=== PATIENT | female | born 1955 | race Caucasian/White ===

== ENCOUNTER 2021-04-11 22:01 | Emergency (ER) | payer MEDICAID ==
[~2021-04-11] VITALS: Ht 167.6 cm; Wt 57.0 kg
[2021-04-11] MEDS ORDERED: IPRATROPIUM BROMIDE (0.02%) 0.5MG/2.5ML NEB HHN STA (22:31)
[2021-04-11] MEDS ORDERED: ONDANSETRON HCL 4MG/2ML INJ IV STA (22:31)
[2021-04-11] MEDS ORDERED: MORPHINE SULFATE 4 MG/ML CPJ (NOT FOR IM USE) IV STA (22:31)
[2021-04-11] MEDS ORDERED: ALBUTEROL (0.083%) 2.5MG/3ML NEB HHN STA (22:31)
[2021-04-11] MEDS ORDERED: FUROSEMIDE 20MG/2ML VIAL IVP ONE (22:45)
[2021-04-11 23:39] LABS: BASOPHILS % 0.6 % (0.0-2.0); CHLORIDE 112 mEq/L (98-107); EOSINOPHILS % 2.2 % (0.0-5.0); HEMATOCRIT. 22.4 % (36.0-48.0); LYMPHOCYTES % 8.9 % (20.0-50.0); MEAN CORPUSCULAR HEMOGLOBIN 20.6 pg (28.0-32.0); MONOCYTES % 9.2 % (2.0-8.0); NEUTROPHILS % 79.1 % (40.0-76.0); RED BLOOD CELL COUNT 3.24 mill/uL (4.2-5.4); RED CELL DISTRIBUTION WIDTH 24.1 % (11.6-14.6)
[2021-04-11 23:44] LABS: ETHANOL BLOOD < 10 mg/dL
[2021-04-11 23:46] LABS: BG BASE EXCESS -3.2 mmol/L (-2.0-2.0); BG CARBOXYHEMOGLOBIN 1.6 % (0.5-1.5); BG DEOXYHEMOGLOBIN 3.5 % (0.0-5.0); BG FRACTION INSPIRED OXYGEN 32; BG HCO3 ACT 23.5 mmol/L (22.0-26.0); BG METHEMOGLOBIN 0.5 % (0.0-1.5); BG OXYGEN SATURATION 96.4 % (92.0-98.5); BG OXYHEMOGLOBIN 94.4 % (94.0-97.0); BG PCO2 52.2 mmHg (35.0-45.0); BG PH 7.272 (7.350-7.450); BG PO2 98.2 mmHg (75.0-100.0); BG SAMPLE SITE LEFT RADIAL; BG VENT MODE NASAL CANNULA
[2021-04-11 23:54] LABS: HEMOGLOBIN. 6.7 g/dL (12.0-16.0)
[2021-04-12 00:30] VITALS: BP 138/74
[2021-04-12 01:36] LABS: INR 1.2
[2021-04-12 02:24] LABS: MEAN PLATELET VOLUME 8.9 fl (7.4-10.4); PLATELET 95 x1000/uL (130-400)
[2021-04-12 02:25] LABS: PLATELET ESTIMATE SLIGHTLY DECREASED
== END 2021-04-12 00:50 | disposition left against medical advice (07) ==
LOC: ER 22:01 → CANBEDREQ 04-12 07:49
DX: K62.5 Hemorrhage of anus and rectum (principal); D64.9 Anemia, unspecified; Z20.822 Contact with and (suspected) exposure to COVID-19; I10 Essential (primary) hypertension; R94.31 Abnormal electrocardiogram [ECG] [EKG]; I25.10 Atherosclerotic heart disease of native coronary artery without angina pectoris; J44.9 Chronic obstructive pulmonary disease, unspecified; Z86.73 Personal history of transient ischemic attack (TIA), and cerebral infarction without residual deficits
CPT/HCPCS: 36415; 36600; 71045; 80053; 80320; 82375; 82805; 83605; 83690; 83880; 84484; 85025; 85379; 85610; 86850; 86900; 86901; 87040; 87426; 93005; 94640; 96374; 96375; 99291; J1940; J2270; J2405; Z7610; G0480